=== PATIENT | male | born 1965 | race Caucasian/White ===

== ENCOUNTER 2019-02-14 11:01 | Inpatient (IN) ==
[2019-02-14] MEDS ORDERED: ENOXAPARIN 100 MG/ML SYRINGE SUBCUT STA (11:55)
[2019-02-14] MEDS ORDERED: KETOROLAC 30 MG/1 ML VIAL IV STA (11:55)
[2019-02-14] MEDS ORDERED: ASPIRIN 325 MG TABLET PO STA (11:55)
[2019-02-14] MEDS ORDERED: DEXTROSE 50% 25 GM/50 ML VIAL IV PRN ×2 (12:04→12:08)
[2019-02-14] MEDS ORDERED: GLUCAGON 1 MG VIAL IM PRN ×3 (12:04→14:47)
[2019-02-14] MEDS ORDERED: POTASSIUM CHLORIDE RIDER 10 MEQ in PREMIX 1 EACH IV PRN (12:06)
[2019-02-14] MEDS ORDERED: MAGNESIUM SULF RIDER 2 GM in PREMIX 1 EACH IV PRN (12:06)
[2019-02-14] MEDS ORDERED: DIAZEPAM 5 MG TABLET PO ONE (12:06)
[2019-02-14] MEDS ORDERED: diphenhydrAMINE CAP 25 MG CAPSULE PO ONE (12:06)
[2019-02-14 12:14] LABS: Basophils # 0.1 10*3/uL (0.0-0.2); Basophils % 0.7 % (0.0-0.8); Eosinophils % 0.2 % (0.00-10.9); Hemoglobin 15.4 GM/DL (14.0-18.0); Immature Granulocytes % 0.5 %; Immature Granulocytes Absolute 0.05 #; Lymphocytes # 1.5 10*3/uL (1.4-4.0); Lymphocytes % 13.9 % (21.2-54.2); Mean Corpuscular HGB Conc 33.5 GM/DL (32-36); Mean Corpuscular Volume 92.4 FL (87-102); Mean Platelet Volume 9.1 FL (9.6-12.0); Monocytes % 12.2 % (1.7-12.7); Neutrophils % 72.5 % (38.7-73.9); Platelet Count 195 T/CUMM (130-400); Red Blood Count 4.98 MC/CUMM (3.8-5.5); Red Cell Distribution Width 13.1 % (9.3-17.3)
[2019-02-14 12:20] LABS: PT Patient Result 10.6 SECS (9.6-12.2); Partial Thromboplastin Time 29.5 SECS (20.8-36.0)
[2019-02-14] MEDS ORDERED: ONDANSETRON 4 MG/2 ML VIAL IV STA (12:26)
[2019-02-14] MEDS ORDERED: HYDROmorphone 2 MG/1 ML VIAL IV STA (12:26)
[2019-02-14 12:32] LABS: Albumin 3.6 G/DL (3.4-5.0); Bilirubin,Total 1.8 MG/DL (0.2-1.0); Calcium 8.5 MG/DL (8.5-10.1); Osmolality,Calculated 279.1 MOS/KG (273-304); Total Protein 7.4 G/DL (6.4-8.3)
[2019-02-14] MEDS ORDERED: MIDAZOLAM 2 MG/2 ML VIAL ONE (12:58)
[2019-02-14] MEDS ORDERED: LIDOCAINE 1% 20 ML VIAL ONE (12:58)
[2019-02-14] MEDS ORDERED: fentaNYL 100 MCG/2 ML VIAL ONE (12:58)
[2019-02-14] MEDS ORDERED: TIROFIBAN 5,000 MCG/100 ML PREMIX IV ONE (13:14)
[2019-02-14] MEDS ORDERED: TICAGRELOR 90 MG TABLET ONE (14:13)
[2019-02-14] MEDS ORDERED: ZALEPLON 5 MG CAPSULE PO PRN (14:47)
[2019-02-14] MEDS ORDERED: NITROGLYCERIN SL 0.4 MG TABLET SL PRN (14:47)
[2019-02-14] MEDS ORDERED: DEXTROSE 10% 25 GM/250 ML BAG IV PRN (14:47)
[2019-02-14] MEDS ORDERED: ONDANSETRON 4 MG/2 ML VIAL IV PRN (14:47)
[2019-02-14] MEDS ORDERED: TIROFIBAN 5,000 MCG/100 ML PREMIX IV SCH (15:00)
[2019-02-14] MEDS: SODIUM CHLORIDE 0.45% 1,000 ML IV SCH (15:25)
[2019-02-14 16:41] LABS: CKMB % 4.6 %
[2019-02-14 16:45] LABS: Troponin I 84.9 NG/ML (0.00-0.045)
[2019-02-14] MEDS: INSULIN REGULAR 100 UNIT/ML SUBCUT SCH ×2 (17:01→20:09)
[2019-02-14] MEDS ORDERED: MAGNESIUM HYDROXIDE SUSP 30 ML UDCUP PO PRN (17:14)
[2019-02-14] MEDS ORDERED: diphenhydrAMINE CAP 25 MG CAPSULE PO PRN (17:14)
[2019-02-14 18:10] LABS: Apearance,Urine CLEAR (Clear); Bilirubin,Urine Negative (Negative); Blood, Urine Small mg/dL (Negative); Glucose,Urine (UA) 150 mg/dL (Negative); Ketones,Urine 5 mg/dL (Negative); Nitrite,Urine Negative (Negative); Protein,Urine Negative; RBC,Urine 1 /HPF (0-4); Urine Color Yellow (Yellow); Urine Specific Gravity > 1.060 (1.001-1.035); WBC,Urine 1 /HPF (0-6)
[2019-02-14 18:48] LABS: Barbiturates Screen,Urine Negative (Negative); Benzodiazepines Screen,Urine Positive (Negative); Cannabinoid Screen,Urine Negative (Negative); Opiate Screen,Urine Positive (Negative); Phencyclidine Screen,Urine Negative (Negative)
[2019-02-14] MEDS: ATORVASTATIN 40 MG TABLET PO SCH (20:09)
[2019-02-14] MEDS: TICAGRELOR 90 MG TABLET PO SCH (20:09)
[2019-02-14] MEDS: carvediloL 3.125 MG TABLET PO SCH (20:09)
[2019-02-15] MEDS: SODIUM CHLORIDE 0.45% 1,000 ML IV SCH (00:21)
[2019-02-15 04:54] LABS: Basophils # 0.1 10*3/uL (0.0-0.2); Basophils % 0.5 % (0.0-0.8); Eosinophils % 0.1 % (0.00-10.9); Hemoglobin 13.4 GM/DL (14.0-18.0); Immature Granulocytes % 0.4 %; Immature Granulocytes Absolute 0.04 #; Lymphocytes # 1.4 10*3/uL (1.4-4.0); Lymphocytes % 12.2 % (21.2-54.2); Mean Corpuscular HGB Conc 33.5 GM/DL (32-36); Mean Corpuscular Volume 91.5 FL (87-102); Mean Platelet Volume 9.5 FL (9.6-12.0); Monocytes % 10.7 % (1.7-12.7); Neutrophils % 76.1 % (38.7-73.9); Platelet Count 180 T/CUMM (130-400); Red Blood Count 4.37 MC/CUMM (3.8-5.5); Red Cell Distribution Width 13.1 % (9.3-17.3); White Blood Count 11.3 T/CUMM (4-12)
[2019-02-15 05:16] LABS: Calcium 8.1 MG/DL (8.5-10.1); Osmolality,Calculated 281.7 MOS/KG (273-304); Risk Ratio 4.25; VLDL CHOLESTEROL 24.8 MG/DL
[2019-02-15 05:43] LABS: CKMB % 2.3 %
[2019-02-15 05:44] LABS: Troponin I 56.1 NG/ML (0.00-0.045)
[2019-02-15] MEDS: carvediloL 3.125 MG TABLET PO SCH ×2 (08:46→20:07)
[2019-02-15] MEDS: PANTOPRAZOLE 40 MG TABLET PO SCH (08:46)
[2019-02-15] MEDS: ASPIRIN EC 81 MG TABLET PO SCH (08:46)
[2019-02-15] MEDS: TICAGRELOR 90 MG TABLET PO SCH ×2 (08:46→20:07)
[2019-02-15] MEDS: INSULIN LISPRO 100 UNIT/ML SUBCUT SCH ×4 (08:47→17:01)
[2019-02-15] MEDS: INSULIN REGULAR 100 UNIT/ML SUBCUT SCH ×4 (08:50→21:27)
[2019-02-15] MEDS ORDERED: lisinopriL 2.5 MG TABLET PO SCH (09:00)
[2019-02-15] MEDS: HYDROmorphone 2 MG/1 ML VIAL IV PRN ×3 (12:22→21:25)
[2019-02-15] MEDS: ATORVASTATIN 40 MG TABLET PO SCH (20:07)
[2019-02-15] MEDS ORDERED: FUROSEMIDE 40 MG/4 ML VIAL IV ONE (21:00)
[2019-02-15] MEDS ORDERED: INSULIN GLARGINE 100 UNIT/ML SUBCUT SCH (21:00)
[2019-02-15] MEDS: INSULIN GLARGINE 100 UNIT/ML SUBCUT SCH (21:26)
[2019-02-16] MEDS: HYDROmorphone 2 MG/1 ML VIAL IV PRN ×3 (07:47→20:21)
[2019-02-16] MEDS ORDERED: FUROSEMIDE 40 MG/4 ML VIAL IV SCH (08:00)
[2019-02-16] MEDS ORDERED: LOSARTAN 25 MG TABLET PO SCH (09:00)
[2019-02-16] MEDS: METOPROLOL SUCCINATE XL 25 MG TABLET PO SCH ×2 (09:17→20:53)
[2019-02-16] MEDS: SPIRONOLACTONE 25 MG TABLET PO SCH (09:17)
[2019-02-16] MEDS: PANTOPRAZOLE 40 MG TABLET PO SCH (09:21)
[2019-02-16] MEDS: INSULIN REGULAR 100 UNIT/ML SUBCUT SCH ×4 (09:21→20:53)
[2019-02-16] MEDS: TICAGRELOR 90 MG TABLET PO SCH ×2 (09:21→20:52)
[2019-02-16] MEDS: INSULIN LISPRO 100 UNIT/ML SUBCUT SCH ×3 (09:21→16:40)
[2019-02-16] MEDS: ASPIRIN EC 81 MG TABLET PO SCH (09:21)
[2019-02-16] MEDS: ATORVASTATIN 40 MG TABLET PO SCH (20:52)
[2019-02-16] MEDS: SACUBITRIL/VALSARTAN 49-51 MG TABLET PO SCH (20:52)
[2019-02-16] MEDS: INSULIN GLARGINE 100 UNIT/ML SUBCUT SCH (20:53)
[2019-02-17] MEDS: HYDROmorphone 2 MG/1 ML VIAL IV PRN ×2 (02:00→08:50)
[2019-02-17 05:30] LABS: Calcium 8.5 MG/DL (8.5-10.1); Osmolality,Calculated 279.7 MOS/KG (273-304)
[2019-02-17 07:50] VITALS: BP 102/64
[2019-02-17] MEDS: INSULIN REGULAR 100 UNIT/ML SUBCUT SCH (08:37)
[2019-02-17] MEDS: ASPIRIN EC 81 MG TABLET PO SCH (08:49)
[2019-02-17] MEDS: METOPROLOL SUCCINATE XL 25 MG TABLET PO SCH (08:49)
[2019-02-17] MEDS: SPIRONOLACTONE 25 MG TABLET PO SCH (08:49)
[2019-02-17] MEDS: PANTOPRAZOLE 40 MG TABLET PO SCH (08:50)
[2019-02-17] MEDS: INSULIN LISPRO 100 UNIT/ML SUBCUT SCH (08:50)
[2019-02-17] MEDS: SACUBITRIL/VALSARTAN 49-51 MG TABLET PO SCH (08:50)
[2019-02-17] MEDS: TICAGRELOR 90 MG TABLET PO SCH (08:50)
== END 2019-02-17 10:47 | disposition home or self-care (01) | DRG 247 ==
LOC: N.EDINP 11:01 → N.ED 11:01 → N.ICU 15:04 → N.TELEN 02-15 14:53
PROVIDERS: ADMIT Internal Medicine Cardiovascular Disease; ATTEND Internal Medicine Cardiovascular Disease
PROC: CLCCHCL (ICD-10-PCS; 2019-02-14 12:45)